=== PATIENT | male | born 2000 | race Caucasian/White ===

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

== ENCOUNTER 2025-03-02 12:06 | Emergency (ER) | payer BC ==
[2025-03-02] MEDS: Diphtheria,Pertussis(Acell),Tetanus Vaccine 0.5 ML Syringe IM ONE (13:37)
[2025-03-02 14:41] VITALS: BP 131/75; PULSE 75
== END 2025-03-02 14:41 | disposition home or self-care (01) ==
LOC: MW.ED 12:06 → MERGE 12:06 → MW.ED 14:41
DX: S61.215A Laceration without foreign body of left ring finger without damage to nail, initial encounter (principal); Z79.899 Other long term (current) drug therapy; X58.XXXA Exposure to other specified factors, initial encounter
CPT/HCPCS: 12001; 90471; 90715; 99282; J2003; 99283